=== PATIENT | male | born 1975 | race Caucasian/White ===

== ENCOUNTER → 2023-03-05 | Outpatient (CLI) | payer OTHER ==
--- NOTE | 2023-03-05 16:22 | US ---
EXAMINATION TYPE: US venous doppler duplex LE LT DATE OF EXAM: 03/05/2023 4:01 PM COMPARISON: none CLINICAL INDICATION: Male, 47 years old with history of M79.662 pain in limb; arthroscopy 2 weeks ag o, swelling in calf ever since SIDE PERFORMED: Left TECHNIQUE: The lower extremity deep venous system is examined utilizing real time linear array sonog dominic with graded compression, doppler sonography and color-flow sonography. VESSELS IMAGED: Common Femoral Vein Deep Femoral Vein Greater Saphenous Vein * Femoral Vein Popliteal Vein Small Saphenous Vein * Proximal Calf Veins (* superficial vessels) Left Leg: Negative for DVT SVT left Gastroc veins IMPRESSION: 1. Left lower extremity ultrasound negative for deep venous thrombosis. 2. Note is made of superficial venous thrombosis within the gastrocnemius veins.
== END | disposition home or self-care (01) ==
LOC: RADUSWWP 15:22
PROVIDERS: ATTEND Orthopaedic Surgery
DX: Z48.89 Encounter for other specified surgical aftercare (principal); Z47.89 Encounter for other orthopedic aftercare; I82.812 Embolism and thrombosis of superficial veins of left lower extremity; M62.552 Muscle wasting and atrophy, not elsewhere classified, left thigh; M17.32 Unilateral post-traumatic osteoarthritis, left knee; M87.862 Other osteonecrosis, left tibia